=== PATIENT | female | born 1930 | race Caucasian/White ===

== ENCOUNTER → 2017-09-10 | Outpatient (CLI) | payer OTHER ==
--- NOTE | ~2017-09-10 | PATH ---
[facility] [place] [address] PATHOLOGY RPT PROCEDURE Name: LAURA MERAZ Room #: REG CARLOS Fermin.#: [id number] Admission: 09/10/17 Date of : 32 Discharge: Report #: [id number] Path Case #: [id number] Note [facility] Accession Number: [id number] TESTS RESULT FLAG UNITS REF RANGE LAB Clinician Provided Cytology Information No. of containers..01 Other (Miscellaneous) Source: RIGHT THYROID NODULE DIAGNOSIS: RIGHT THYROID NODULE INCONCLUSIVE. [place] CATEGORY III. FOLLICULAR LESION OF UNDETERMINED SIGNIFICANCE. SPECIMEN CONSISTS OF ABUNDANT FOLLICULAR CELLS WITH SCANT COLLOID. THE DIFFERENTIAL DIAGNOSIS INCLUDES CELLULAR ADENOMATOID NODULE AND FOLLICULAR NEOPLASM. THIS INTERPRETATION INCLUDES EVALUATION OF A CELL BLOCK. Comment: Numerous microfollicles, scant colloid and a few Hurthle cells are noted. The differential diagnosis includes an adenomatoid nodule with microfollicles or an adenoma. Nature of this sample precludes evaluation for invasion (follicular carcinoma). Definitive nuclear features of papillary carcinoma are not identified. Please note sample represents a minute portion of a larger lesion and may not be telesales representative. Correlate clinically and follow-up as indicated. The RNA retain vial has been sent for analysis. [place]: Dr. Lindsey Cornell. Pathologist ICD10: 02 R89.6 Signed out by: Kristal Escobedo MD, Pathologist NPI- [id number] Performed by: Kenny Najera, Motion Picture Commentator ([facility]) Gross description: 01 20 ML, RED, CLEAR /LCS FLAG LEGEND: L-Low Normal,H-High Normal,LL-Alert Low,HH-Alert High <-Panic Low,>-Panic High,A-Abnormal,AA-Critical Abnormal Performed at: [facility] [address] [place] [id number] Collin Franco MD, [address] [address] PATHOLOGY RPT PROCEDURE Name: LAURA MERAZ Room #: REG CARLOS Garcia#: [id number] Admission: 09/10/17 Date of : 32 Discharge: Report #: [id number] Path Case #: [id number] 02 [facility] [address], [place] [address] Kristal Escobedo MD, Performed at: [address], [place], [place] [id number] MD Collin Franco MD Phone: [phone]
== END | disposition home or self-care (01) ==
LOC: ULTRA 12:57
DX: E04.2 Nontoxic multinodular goiter (principal)